=== PATIENT | female | born 1990 | race Hispanic/Latino ===

== ENCOUNTER 2021-01-05 05:51 | Day surgery (SDC) | payer OTHER ==
[~2021-01-05] VITALS: Ht 165.1 cm; Wt 90.1 kg
[~2021-01-05 05:51] MED LIST: OMEP40CA21 PO
[2021-01-05] MEDS ORDERED: 0.9%NACL 1000ML 1,000 ML IV ONE (06:19)
[2021-01-05 06:31] VITALS: BP 132/80
== END 2021-01-05 07:30 | disposition home or self-care (01) ==
LOC: ENDO 05:51 → DAH 05:51 → ENDO 07:30
PROVIDERS: ATTEND Internal Medicine
DX: R10.10 Upper abdominal pain, unspecified (principal); Z20.822 Contact with and (suspected) exposure to COVID-19; R11.2 Nausea with vomiting, unspecified; R12 Heartburn
CPT/HCPCS: 87635; C9803; J7030

== ENCOUNTER 2021-01-06 05:59 | Day surgery (SDC) | payer OTHER ==
[2021-01-06] VITALS (7 sets, daily range): BP systolic 105–154; BP diastolic 56–86
[~2021-01-06] VITALS: Ht 165.1 cm; Wt 89.8 kg
[2021-01-06] MEDS ORDERED: 0.9%NACL 1000ML 1,000 ML IV ONE (06:13)
[2021-01-06] MEDS ORDERED: METOCLOPRAMIDE 10 MG/2 ML VIAL ONE (06:55)
[2021-01-06] MEDS ORDERED: PROPOFOL 10 MG/ML 20ML VIAL IV ONE ×3 (07:21→07:41)
[2021-01-06] MEDS ORDERED: LIDOCAINE HCL 1% 20 ML VIAL ONE (07:21)
[2021-01-06] MEDS ORDERED: SUCCINYLCHOLINE 200MG/10ML SYR ONE (07:39)
== END 2021-01-06 08:30 | disposition home or self-care (01) ==
LOC: DAH 05:59
PROVIDERS: ATTEND Internal Medicine
DX: T18.2XXA Foreign body in stomach, initial encounter (principal); Z20.822 Contact with and (suspected) exposure to COVID-19; K31.89 Other diseases of stomach and duodenum; K21.9 Gastro-esophageal reflux disease without esophagitis; E66.01 Morbid (severe) obesity due to excess calories; Z72.89 Other problems related to lifestyle; Z68.34 Body mass index [BMI] 34.0-34.9, adult; X58.XXXA Exposure to other specified factors, initial encounter
CPT/HCPCS: 43247; A4215 ×3; A4221; A4222; A4223; A4606; A4620; A4657; A4663; J0330; J2704 ×3; J2765; J7030